=== PATIENT | female | born 1985 | race Caucasian/White ===

== ENCOUNTER 2018-06-13 17:15 | Emergency (ER) | payer OTHER ==
[~2018-06-13] VITALS: Ht 160 cm; Wt 94.0 kg
[~2018-06-13 17:15] MED LIST: IBUP-1222 PO; LABE200T6 PO; OXYC-302 PO; PREN1TAB27 PO
[2018-06-13 18:07] LABS: BASOPHILS # (AUTO) 0.04 x10^3/uL (0-0.1); BASOPHILS % (AUTO) 0 % (0-1); EOSINOPHILS # (AUTO) 0.08 x10^3/uL (0-0.4); EOSINOPHILS % (AUTO) 1 % (1-7); LYMPHOCYTES # (AUTO) 2.83 x10^3/uL (1-3.4); LYMPHOCYTES % (AUTO) 19 % (22-44); MD NO; MEAN CORPUSCULAR HEMOGLOBIN 30.7 pg (27.0-34.8); MEAN CORPUSCULAR HGB CONC 34.1 g/dL (32.4-35.8); MEAN CORPUSCULAR VOLUME 89.8 fL (80-100); MEAN PLATELET VOLUME 9.1 fL (7.4-10.4); MONOCYTES # (AUTO) 0.64 x10^3/uL (0.2-0.8); MONOCYTES % (AUTO) 4 % (2-9); NEUTROPHILS # (AUTO) 11.47 x10^3/uL (1.8-6.8); NEUTROPHILS % (AUTO) 76 % (42-75); PLATELET COUNT 366 x10^3/uL (130-400); RED BLOOD COUNT 4.97 x10^6/uL (3.82-5.3); RED CELL DISTRIBUTION WIDTH 13.5 % (9.6-15.2)
[2018-06-13 18:15] LABS: ALANINE AMINOTRANSFERASE 37 U/L (12-78); ALBUMIN 4.6 g/dL (3.4-5.0); ANION GAP 9 mmol/L (5-15); CALCIUM 9.3 mg/dL (8.5-10.1); CHLORIDE 104 mmol/L (98-107)
[2018-06-13 18:21] LABS: ALKALINE PHOSPHATASE 65 U/L (45-117); BILIRUBIN,TOTAL 0.6 mg/dL (0.2-1.0); CREATININE 0.67 mg/dL (0.55-1.02); TOTAL PROTEIN 8.6 g/dL (6.4-8.2)
--- NOTE | 2018-06-13 18:27 | NUR ---
AMBULATORY TO ROOM FROM LOBBY
--- NOTE | 2018-06-13 19:01 | NUR ---
REPORT TO OLEG CUEVAS. MD IS AT BEDSIDE.
--- NOTE | 2018-06-13 19:02 | NUR ---
URINE SAMPLE SENT
[2018-06-13 19:12] LABS: MICROSCOPIC INDICATED
[2018-06-13 19:22] LABS: CULTURE INDICATED? NO
--- NOTE | 2018-06-13 19:22 | NUR ---
PT RESTING ON GURNEY, MONITORS IN PLACE, SIDERAILS UP X2, FAMILY AT BEDSIDE, DENIES NEEDS, CALL LIGHT WITHIN REACH.
[2018-06-13 19:26] VITALS: BP 153/108
--- NOTE | 2018-06-13 19:29 | NUR ---
PT PRESENTED WITH C/O BARRON & RIGHT LOW BACK PAIN RAD TO RUQ ABD X FEW MONTHS, WORSE LAST 2 DAYS; DENIES URINARY SYM, NV, FEVER HX BHAVANI. MONITORS APPLIED, SIDERAILS UP X2, CALL LIGHT WITHIN REACH.
== END 2018-06-13 20:05 | disposition home or self-care (01) ==
LOC: ED 19:45
DX: R10.9 Unspecified abdominal pain (principal); Z90.49 Acquired absence of other specified parts of digestive tract
CPT/HCPCS: 36415; 76700; 80053; 81001; 83690; 84703; 85025; 99284

== ENCOUNTER 2018-07-20 18:42 | Emergency (ER) | payer OTHER ==
[~2018-07-20] VITALS: Ht 160 cm; Wt 94.1 kg
[2018-07-20 18:48] VITALS: BP 155/101
[2018-07-20] MEDS ORDERED: IBUPROFEN 100 MG/5 ML UDC ONE (18:53)
--- NOTE | 2018-07-20 19:14 | NUR ---
DC EDUCATION PROVIDED, PT DEMONSTRATES UNDERSTANDING. PT AMBULATED STEADILY TO DC WITH RN
== END 2018-07-20 19:21 | disposition home or self-care (01) ==
LOC: ED 19:00
DX: H66.92 Otitis media, unspecified, left ear (principal); J06.9 Acute upper respiratory infection, unspecified
CPT/HCPCS: 99283

== ENCOUNTER 2018-07-29 21:40 | Emergency (ER) | payer OTHER ==
[~2018-07-29] VITALS: Ht 160 cm; Wt 95.0 kg
--- NOTE | 2018-07-29 22:12 | NUR ---
PT. TO ED WITH C/O LEFT EAR PAIN AND BARRON'S; WAS DX WITH EAR INFECTION ON 07/20 AND TOOK ALL ABX ORDERED. PT. REPORTS "THE COUGH MEDS AREN'T HELPING". STATES HAS BEEN TAKING FLONASE WELL WITH NO RELIEF FROM CONGESTION. C/O "I SOMETIMES HAVE EPISODES WHERE I FEEL LIKE I CAN'T BREATH". DENIES ANY SOB/CP CURRENTLY. CONTINUOUS PULSE OX AND B/P MONIOTRS PLACED. CALL LIGHT IN REACH. FAMILY AT FOR SUPPORT.
[2018-07-29 22:16] VITALS: BP 156/106
== END 2018-07-29 23:06 | disposition home or self-care (01) ==
LOC: ED 23:00
DX: H92.03 Otalgia, bilateral (principal); I10 Essential (primary) hypertension; Z88.6 Allergy status to analgesic agent
CPT/HCPCS: 99281